=== PATIENT | male | born 2000 | race African-American/Black ===

== ENCOUNTER 2020-03-02 15:02 | Emergency (ER) | payer MEDICAID, SELFPAY ==
[~2020-03-02] VITALS: Ht 172.7 cm; Wt 59.0 kg
[2020-03-02 15:05] VITALS: BP 121/66; Ht 172.7 cm; Wt 59.0 kg
== END 2020-03-02 17:15 | disposition home or self-care (01) ==
LOC: ED 15:02
DX: M32.9 Systemic lupus erythematosus, unspecified (principal); Z20.828 Contact with and (suspected) exposure to other viral communicable diseases
CPT/HCPCS: J7512; U0003-CS

== ENCOUNTER 2020-03-22 00:22 | Emergency (ER) | payer MEDICAID, SELFPAY ==
[~2020-03-22] VITALS: Ht 172.7 cm; Wt 59.9 kg
[2020-03-22 00:24] VITALS: Ht 172.7 cm; Wt 59.9 kg
[2020-03-22 01:19] VITALS: BP 102/61
== END 2020-03-22 01:19 | disposition home or self-care (01) ==
LOC: ED 00:22
DX: R50.9 Fever, unspecified (principal); J02.9 Acute pharyngitis, unspecified; Z20.828 Contact with and (suspected) exposure to other viral communicable diseases
CPT/HCPCS: U0003